=== PATIENT | male | born 1985 | race Caucasian/White ===

== ENCOUNTER 2019-01-13 11:03 | Day surgery (SDC) | payer OTHER ==
[2019-01-13] MEDS ORDERED: CEFAZOLIN 1 GM/50 ML (PMX) 50 ML IVPB (12:00)
[2019-01-13] MEDS: LACTATED RINGER'S 1,000 ML IV (12:30)
[2019-01-13] MEDS: LIDOCAINE 1%/EPI (1:100,000) (MDV) 20 ML (13:39)
[2019-01-13] MEDS: OXYMETAZOLINE 0.05% 15 ML NAS SPRAY NASAL (13:39)
[2019-01-13] MEDS: BACITRACIN/POLYMYXIN 28.35 GM OINT TOP (13:39)
[2019-01-13] MEDS ORDERED: OXYCODONE/ACETAMINOPHEN (5/325) TAB PO (14:30)
[2019-01-13] MEDS ORDERED: ONDANSETRON 4 MG INJ IV (14:30)
[2019-01-13] MEDS ORDERED: DIPHENHYDRAMINE 50 MG INJ IV (14:30)
[2019-01-13] MEDS ORDERED: FENTAnyl 50 MCG/ML VIAL IV ×3 (14:30)
[2019-01-13] MEDS ORDERED: HYDROmorphONE 1 MG/5 ML IV SYRINGE IV (14:30)
[2019-01-13] MEDS ORDERED: METOCLOPRAMIDE 10 MG INJ IV (14:30)
[2019-01-13] MEDS ORDERED: MIDAZOLAM 1 MG/ML 2 ML INJ IV (14:30)
[2019-01-13] MEDS ORDERED: MEPERIDINE 25 MG INJ IV (14:30)
[2019-01-13] MEDS ORDERED: PROPOFOL 20 ML (14:31)
[2019-01-13] MEDS ORDERED: MEPERIDINE 100 MG INJ (14:31)
[2019-01-13] MEDS ORDERED: NEOSTIGMINE 3 MG/3 ML SYRINGE (14:31)
[2019-01-13] MEDS ORDERED: LIDOCAINE 2% (SDV) 5 ML INJ (14:31)
[2019-01-13] MEDS ORDERED: ROCURONIUM 50 MG INJ (14:31)
[2019-01-13] MEDS ORDERED: GLYCOPYRROLATE 0.4 MG INJ (14:31)
[2019-01-13] MEDS ORDERED: SUCCINYLCHOLINE CHLORIDE 100 MG/5 ML SYG IV (14:31)
[2019-01-13] MEDS: HYDROmorphONE 1 MG/5 ML IV SYRINGE IV ×2 (16:05→16:13)
[2019-01-13] MEDS: OXYCODONE/ACETAMINOPHEN (5/325) TAB PO (17:11)
== END 2019-01-13 18:06 | disposition home or self-care (01) ==
LOC: SDS 11:03
DX: J34.2 Deviated nasal septum (principal); J34.3 Hypertrophy of nasal turbinates
CPT/HCPCS: 30140; 88300